=== PATIENT | female | born 1960 | race Caucasian/White ===

== ENCOUNTER 2020-09-07 12:57 | Inpatient (IN) | payer OTHER ==
[2020-09-07 13:28] VITALS: BMI 30.3
[2020-09-07 14:29] LABS: EOS % 5.6 % (0-4.5); HEMATOCRIT 39.6 % (32.4-45.2); LYMPH % 12.1 % (8-40); MCH 30.1 pg (25.7-33.7); MCHC 32.8 g/dl (32.0-36.0); MEAN PLT VOLUME 10.6 fl (7.5-11.1); MONO % 3.3 % (3.8-10.2); PLATELET COUNT 189 K/MM3 (134-434); RDW 14.2 % (11.6-15.6); WHITE BLOOD COUNT 12.8 K/mm3 (4.0-10.0)
[2020-09-07 14:34] LABS: INR 1.14 (0.83-1.09); PROTHROMBIN TIME (PATIENT) 13.7 SEC (9.7-13.0)
[2020-09-07 14:37] LABS: ACTIVATED PTT 32.2 SECONDS (25.2-36.5)
[2020-09-07 14:44] LABS: VENOUS BASE EXCESS -2.3 mmol/L (-2-2); VENOUS O2 SATURATION 80.3 % (70-80); VENOUS PCO2 52.2 mmHg (38-52); VENOUS PH 7.302 (7.310-7.410)
[2020-09-07 14:47] LABS: CHLORIDE 101 mmol/L (98-107); POTASSIUM 4.1 mmol/L (3.5-5.1); SODIUM 135 mmol/L (136-145)
[2020-09-07 14:50] LABS: CALCIUM 9.4 mg/dL (8.5-10.1)
[2020-09-07 14:51] LABS: ALBUMIN 3.7 g/dl (3.4-5.0); ANION GAP 6 MMOL/L (8-16); CO2 29 mmol/L (21-32); GLUCOSE,RANDOM 301 mg/dL (74-106)
[2020-09-07 14:54] LABS: BILIRUBIN,DIRECT 0.2 mg/dL (0.0-0.2); CREATININE 0.8 mg/dL (0.55-1.3); SGOT/AST 37 U/L (15-37); SGPT/ALT 51 U/L (13-61)
[2020-09-07 14:56] LABS: BILIRUBIN,TOTAL 0.8 mg/dL (0.2-1); TOT PROT 7.5 g/dl (6.4-8.2)
[2020-09-07 14:57] LABS: ALK PHOS 132 U/L (45-117); LDH 254 U/L (84-246)
[2020-09-07 15:01] LABS: EPI CELLS >36 /uL (0-25.1); HYALINE CASTS 7 /uL (0-3.1); URINE APPEARANCE CLOUDY; URINE BACTERIA 674 /uL (0-1359); URINE BILIRUBIN NEGATIVE (NEGATIVE); URINE COLOR YELLOW; URINE GLUCOSE (UA) 3+ (NEGATIVE); URINE KETONE TRACE (NEGATIVE); URINE LEUK ESTERASE NEGATIVE (NEGATIVE); URINE NITRITE NEGATIVE (NEGATIVE); URINE PROTEIN 2+ (NEGATIVE); URINE WBC 45 /uL (0-25.8)
[2020-09-07 16:43] LABS: URINE RBC 20 /uL (0-23.9)
[2020-09-07] MEDS ORDERED: ALBUTEROL SO4 2.5/IPRATROPIUM 0.5 INH SOL 3 ML VIAL.NEB. NEB ONE ×5 (16:45→18:24)
[2020-09-07] MEDS ORDERED: predniSONE 20 MG TABLET (UD) PO ONE (16:45)
[2020-09-07] MEDS ORDERED: predniSONE 20 MG TABLET (UD) ONE ×2 (17:27→17:30)
[2020-09-07] MEDS ORDERED: ALBUTEROL SO4 HFA INHALER IH PRN ×2 (20:11→20:43)
[2020-09-07] MEDS: FAMOTIDINE 20 MG TABLET PO SCH (21:19)
[2020-09-07] MEDS ORDERED: FAMOTIDINE 20 MG/50 ML IVPB 20 MG/50 ML MG IVPB ONE (21:19)
[2020-09-07] MEDS: MONTELUKAST NA 10 MG TABLET PO SCH (22:10)
[2020-09-07] MEDS: BUDESONIDE/FORMETEROL FUMARATE 80/4.5 mcg INHALER IH SCH (22:10)
[2020-09-07 22:26] LABS: ARTERIAL BLD GAS O2 SATURATION 97.7 mmHg (95-98); ARTERIAL BLOOD GAS BASE EXCESS -0.6 mmol/L (-2-2); ARTERIAL BLOOD GAS PO2 103.3 mmHg (80-100); ARTERIAL BLOOD GAS pH 7.385 (7.350-7.450)
[2020-09-07 22:28] LABS: ALLENS TEST POSITIVE
[2020-09-07] MEDS ORDERED: MONTELUKAST NA 10 MG TABLET ONE (22:39)
[2020-09-07] MEDS: INSULIN SLIDING SCALE (NOVOLOG) 1 VIAL SQ SCH (22:50)
[2020-09-07] MEDS ORDERED: INSULIN (LEVEMIR) 100 UNITS/ML UNITS SQ ONE (23:35)
[2020-09-07] MEDS: INSULIN (LEVEMIR) 100 UNITS/ML UNITS SQ SCH (23:46)
[2020-09-08] MEDS ORDERED: AZITHROMYCIN IVPB 500 MG in DEXTROSE 5%-WATER - 250 ML IVPB ONE ×2 (00:47→02:45)
[2020-09-08] MEDS ORDERED: AZITHROMYCIN IVPB 500 MG/250 ML BAG IVPB ONE (02:45)
[2020-09-08] MEDS: INSULIN SLIDING SCALE (NOVOLOG) 1 VIAL SQ SCH ×4 (06:47→21:59)
[2020-09-08] MEDS: BUDESONIDE/FORMETEROL FUMARATE 80/4.5 mcg INHALER IH SCH ×2 (09:57→22:20)
[2020-09-08] MEDS: FAMOTIDINE 20 MG TABLET PO SCH (09:57)
[2020-09-08] MEDS ORDERED: methylPREDNISolone NA SUCC 40 MG/1 ML VIAL IVPUSH SCH (10:00)
[2020-09-08] MEDS ORDERED: ENOXAPARIN NA (PORCINE) 40 MG/0.4 ML DISP.SYRIN SQ SCH (10:00)
[2020-09-08] MEDS ORDERED: AZITHROMYCIN IVPB 500 MG/250 ML BAG IVPB SCH ×2 (10:00)
[2020-09-08 10:03] LABS: POTASSIUM 3.9 mmol/L (3.5-5.1)
[2020-09-08 10:06] LABS: BASO % 0.2 % (0-2.0); EOS % 0.1 % (0-4.5); HEMATOCRIT 37.3 % (32.4-45.2); HEMOGLOBIN 12.5 GM/dL (10.7-15.3); LYMPH % 8.3 % (8-40); MCH 30.3 pg (25.7-33.7); MCHC 33.5 g/dl (32.0-36.0); MEAN CELL VOLUME 90.6 fl (80-96); MEAN PLT VOLUME 10.4 fl (7.5-11.1); MONO % 3.2 % (3.8-10.2); NEUT % 88.2 % (42.8-82.8); PLATELET COUNT 202 K/MM3 (134-434); RBC 4.12 M/mm3 (3.60-5.2); RDW 14.2 % (11.6-15.6); WHITE BLOOD COUNT 24.8 K/mm3 (4.0-10.0)
[2020-09-08 10:08] LABS: ALBUMIN 3.5 g/dl (3.4-5.0); BLOOD UREA NITROGEN 22.4 mg/dL (7-18); CALCIUM 9.2 mg/dL (8.5-10.1)
[2020-09-08 10:13] LABS: PHOSPHOROUS 3.3 mg/dL (2.5-4.9); TOT PROT 7.4 g/dl (6.4-8.2)
[2020-09-08 10:20] LABS: BILIRUBIN,TOTAL 0.5 mg/dL (0.2-1)
[2020-09-08] MEDS: INSULIN (LEVEMIR) 100 UNITS/ML UNITS SQ SCH ×2 (10:44→21:58)
[2020-09-08] MEDS ORDERED: INSULIN (NOVOLOG) ASPART 100 UNITS/ML 10ML VIAL ONE ×2 (10:50→21:19)
[2020-09-08 11:03] LABS: ANISOCYTOSIS 0; MACROCYTOSIS 0; PLATELET ESTIMATE NORMAL
[2020-09-08] MEDS ORDERED: ALBUTEROL SO4 HFA INHALER IH PRN (15:34)
[2020-09-08] MEDS: methylPREDNISolone NA SUCC 40 MG/1 ML VIAL IVPUSH SCH (17:18)
[2020-09-08] MEDS ORDERED: INSULIN (NOVOLOG) ASPART 100 UNITS/ML 10ML VIAL SQ ONE (17:20)
[2020-09-08 20:37] LABS: POTASSIUM 4.6 mmol/L (3.5-5.1)
[2020-09-08 20:42] LABS: CREATININE 1.1 mg/dL (0.55-1.3)
[2020-09-08] MEDS: APIXABAN 5 MG TABLET PO SCH (21:58)
[2020-09-08] MEDS: MONTELUKAST NA 10 MG TABLET PO SCH (21:58)
[2020-09-09] MEDS: methylPREDNISolone NA SUCC 40 MG/1 ML VIAL IVPUSH SCH ×3 (01:26→18:23)
[2020-09-09] MEDS ORDERED: PT OWN MED DRAWER 7, Y5N ONE ×2 (05:51→10:14)
[2020-09-09] MEDS: INSULIN (LEVEMIR) 100 UNITS/ML UNITS SQ SCH ×2 (06:47→22:32)
[2020-09-09] MEDS: INSULIN SLIDING SCALE (NOVOLOG) 1 VIAL SQ SCH ×4 (06:47→22:29)
[2020-09-09 08:13] LABS: BASO % 0.2 % (0-2.0); HEMATOCRIT 37.9 % (32.4-45.2); HEMOGLOBIN 12.6 GM/dL (10.7-15.3); LYMPH % 5.5 % (8-40); MCH 30.5 pg (25.7-33.7); MCHC 33.1 g/dl (32.0-36.0); MEAN CELL VOLUME 92.2 fl (80-96); MEAN PLT VOLUME 9.9 fl (7.5-11.1); MONO % 1.5 % (3.8-10.2); NEUT % 92.8 % (42.8-82.8); PLATELET COUNT 202 K/MM3 (134-434); RBC 4.12 M/mm3 (3.60-5.2); RDW 14.3 % (11.6-15.6)
[2020-09-09 09:09] LABS: CALCIUM 9.4 mg/dL (8.5-10.1)
[2020-09-09 09:10] LABS: ALBUMIN 3.6 g/dl (3.4-5.0); BLOOD UREA NITROGEN 26.4 mg/dL (7-18); MAGNESIUM 2.3 mg/dL (1.8-2.4)
[2020-09-09 09:13] LABS: CREATININE 0.9 mg/dL (0.55-1.3); PHOSPHOROUS 4.2 mg/dL (2.5-4.9)
[2020-09-09 09:14] LABS: BILIRUBIN,TOTAL 0.5 mg/dL (0.2-1)
[2020-09-09 09:15] LABS: TOT PROT 7.4 g/dl (6.4-8.2)
[2020-09-09] MEDS: APIXABAN 5 MG TABLET PO SCH ×2 (10:16→22:32)
[2020-09-09] MEDS: FAMOTIDINE 20 MG TABLET PO SCH (10:16)
[2020-09-09] MEDS: BUDESONIDE/FORMETEROL FUMARATE 80/4.5 mcg INHALER IH SCH ×2 (10:17→22:33)
[2020-09-09 11:23] LABS: ANISOCYTOSIS 0; MACROCYTOSIS 0; PLATELET ESTIMATE NORMAL
[2020-09-09] MEDS ORDERED: REMDESIVIR 200 MG in SODIUM CHLORIDE 210 ML IVPB ONE (13:00)
[2020-09-09] MEDS ORDERED: PARoxetine HCL 20 MG TABLET PO ONE (18:41)
[2020-09-09] MEDS: MONTELUKAST NA 10 MG TABLET PO SCH (22:32)
[2020-09-10] MEDS: methylPREDNISolone NA SUCC 40 MG/1 ML VIAL IVPUSH SCH ×3 (02:06→17:26)
[2020-09-10] MEDS ORDERED: INSULIN (NOVOLOG) ASPART 100 UNITS/ML 10ML VIAL SQ ONE ×2 (02:59→04:16)
[2020-09-10] MEDS ORDERED: diphenhydrAMINE HCL 25 MG CAPSULE (FP) PO ONE (04:14)
[2020-09-10] MEDS: INSULIN SLIDING SCALE (NOVOLOG) 1 VIAL SQ SCH ×4 (06:44→22:34)
[2020-09-10] MEDS: INSULIN (LEVEMIR) 100 UNITS/ML UNITS SQ SCH ×2 (06:45→22:32)
[2020-09-10 08:25] LABS: HEMATOCRIT 34.9 % (32.4-45.2); HEMOGLOBIN 11.6 GM/dL (10.7-15.3); LYMPH % 5.9 % (8-40); MCH 30.3 pg (25.7-33.7); MCHC 33.1 g/dl (32.0-36.0); MEAN CELL VOLUME 91.6 fl (80-96); MEAN PLT VOLUME 10.5 fl (7.5-11.1); MONO % 2.9 % (3.8-10.2); NEUT % 91.2 % (42.8-82.8); PLATELET COUNT 171 K/MM3 (134-434); POTASSIUM 3.9 mmol/L (3.5-5.1); RBC 3.81 M/mm3 (3.60-5.2); RDW 14.2 % (11.6-15.6); WHITE BLOOD COUNT 20.5 K/mm3 (4.0-10.0)
[2020-09-10 08:37] LABS: ALBUMIN 3.4 g/dl (3.4-5.0); CALCIUM 9.1 mg/dL (8.5-10.1)
[2020-09-10 08:38] LABS: BLOOD UREA NITROGEN 25.2 mg/dL (7-18); MAGNESIUM 2.5 mg/dL (1.8-2.4)
[2020-09-10 08:40] LABS: CREATININE 0.9 mg/dL (0.55-1.3)
[2020-09-10 08:41] LABS: BILIRUBIN,TOTAL 0.4 mg/dL (0.2-1); PHOSPHOROUS 3.4 mg/dL (2.5-4.9); TOT PROT 6.9 g/dl (6.4-8.2)
[2020-09-10 10:46] LABS: ANISOCYTOSIS 0; MACROCYTOSIS 0; PLATELET ESTIMATE NORMAL
[2020-09-10] MEDS: BUDESONIDE/FORMETEROL FUMARATE 80/4.5 mcg INHALER IH SCH ×2 (10:56→22:38)
[2020-09-10] MEDS: FAMOTIDINE 20 MG TABLET PO SCH (10:56)
[2020-09-10] MEDS: APIXABAN 5 MG TABLET PO SCH ×2 (10:56→22:32)
[2020-09-10] MEDS: REMDESIVIR 100 MG in SODIUM CHLORIDE 230 ML IVPB SCH (12:00)
[2020-09-10] MEDS ORDERED: PARoxetine HCL 20 MG TABLET PO ONE (15:00)
[2020-09-10] MEDS: MONTELUKAST NA 10 MG TABLET PO SCH (22:32)
[2020-09-11] MEDS: INSULIN SLIDING SCALE (NOVOLOG) 1 VIAL SQ SCH ×4 (06:05→23:26)
[2020-09-11] MEDS: INSULIN (LEVEMIR) 100 UNITS/ML UNITS SQ SCH ×2 (06:05→23:26)
[2020-09-11] MEDS ORDERED: INSULIN (LEVEMIR) 100 UNITS/ML UNITS SQ SCH (08:58)
[2020-09-11] MEDS: BUDESONIDE/FORMETEROL FUMARATE 80/4.5 mcg INHALER IH SCH ×2 (10:10→23:30)
[2020-09-11] MEDS: DEXAMETHASONE SOD PHOSPHATE 4 MG/1 ML VIAL IVPUSH SCH (10:10)
[2020-09-11] MEDS: APIXABAN 5 MG TABLET PO SCH ×2 (10:10→23:25)
[2020-09-11] MEDS: FAMOTIDINE 20 MG TABLET PO SCH (10:10)
[2020-09-11] MEDS: PARoxetine HCL 20 MG TABLET PO SCH (10:10)
[2020-09-11] MEDS: REMDESIVIR 100 MG in SODIUM CHLORIDE 230 ML IVPB SCH (15:05)
[2020-09-11] MEDS: MONTELUKAST NA 10 MG TABLET PO SCH (23:25)
[2020-09-12 02:02] VITALS: PULSE 60
[2020-09-12] MEDS ORDERED: ACETAMINOPHEN 325 MG TABLET (FP) PO ONE (02:07)
[2020-09-12] MEDS: INSULIN SLIDING SCALE (NOVOLOG) 1 VIAL SQ SCH ×2 (06:34→12:33)
[2020-09-12] MEDS: INSULIN (LEVEMIR) 100 UNITS/ML UNITS SQ SCH (06:34)
[2020-09-12] MEDS ORDERED: INSULIN (NOVOLOG) ASPART 100 UNITS/ML 10ML VIAL ONE ×2 (06:39→12:06)
[2020-09-12 07:03] VITALS: BP 148/92; TEMP 97.3
[2020-09-12 08:47] LABS: BASO % 0.5 % (0-2.0); EOS % 0.6 % (0-4.5); HEMATOCRIT 39.2 % (32.4-45.2); HEMOGLOBIN 13.3 GM/dL (10.7-15.3); LYMPH % 16.5 % (8-40); MCH 30.9 pg (25.7-33.7); MCHC 34.1 g/dl (32.0-36.0); MEAN CELL VOLUME 90.6 fl (80-96); MEAN PLT VOLUME 10.2 fl (7.5-11.1); MONO % 7.3 % (3.8-10.2); NEUT % 75.1 % (42.8-82.8); PLATELET COUNT 195 K/MM3 (134-434); RBC 4.33 M/mm3 (3.60-5.2); RDW 13.9 % (11.6-15.6); WHITE BLOOD COUNT 18.9 K/mm3 (4.0-10.0)
[2020-09-12 09:04] LABS: POTASSIUM 4.1 mmol/L (3.5-5.1)
[2020-09-12 09:05] LABS: ALBUMIN 3.6 g/dl (3.4-5.0); CALCIUM 9.2 mg/dL (8.5-10.1)
[2020-09-12 09:09] LABS: CREATININE 0.8 mg/dL (0.55-1.3); PHOSPHOROUS 4.2 mg/dL (2.5-4.9)
[2020-09-12 09:10] LABS: MAGNESIUM 2.2 mg/dL (1.8-2.4)
[2020-09-12] MEDS: BUDESONIDE/FORMETEROL FUMARATE 80/4.5 mcg INHALER IH SCH (09:37)
[2020-09-12] MEDS: PARoxetine HCL 20 MG TABLET PO SCH (09:37)
[2020-09-12] MEDS: DEXAMETHASONE SOD PHOSPHATE 4 MG/1 ML VIAL IVPUSH SCH (09:37)
[2020-09-12] MEDS: APIXABAN 5 MG TABLET PO SCH (09:37)
[2020-09-12] MEDS: FAMOTIDINE 20 MG TABLET PO SCH (09:37)
[2020-09-12 10:19] LABS: BILIRUBIN,TOTAL 0.6 mg/dL (0.2-1); TOT PROT 7.2 g/dl (6.4-8.2)
[2020-09-12 10:20] LABS: ERYTHROCYTE SEDIMENTATION RATE 16 mm/hr (0-30)
[2020-09-12 10:23] LABS: ANISOCYTOSIS 0; MACROCYTOSIS 0; PLATELET ESTIMATE NORMAL
[2020-09-12] MEDS: REMDESIVIR 100 MG in SODIUM CHLORIDE 230 ML IVPB SCH (12:33)
== END 2020-09-12 16:24 | disposition home or self-care (01) | DRG 177 ==
LOC: JER 12:57 → JERBED 19:10 → J6S 09-08 02:24
PROVIDERS: ADMIT Internal Medicine; ATTEND Internal Medicine
PROC: 8E0ZXY6 Isolation (ICD-10-PCS; 2020-09-07)
PROC: XW033E5 Introduction of Remdesivir Anti-infective into Peripheral Vein, Percutaneous Approach, New Technology Group 5 (ICD-10-PCS; 2020-09-09)
PROC: XW13325 Transfusion of Convalescent Plasma (Nonautologous) into Peripheral Vein, Percutaneous Approach, New Technology Group 5 (ICD-10-PCS; principal; 2020-09-10)
DX: U07.1 COVID-19 (principal); J12.89 Other viral pneumonia; J96.01 Acute respiratory failure with hypoxia; J96.02 Acute respiratory failure with hypercapnia; J45.901 Unspecified asthma with (acute) exacerbation; R43.8 Other disturbances of smell and taste; J45.909 Unspecified asthma, uncomplicated; E11.65 Type 2 diabetes mellitus with hyperglycemia
CPT/HCPCS: 36415; 36430; 36600; 71045-TC-FY; 71275-TC; 80048; 80053; 81003; 82248; 82550; 82553; 82728; 82803; 82962; 83605; 83615; 83735; 84100; 84484; 85025; 85379; 85610; 85651; 85730; 86140; 86850; 86900; 86901; 87040; 87086; 87804; 93005; 93010; 94761; 97116-GP; 97162-GP; 99291; C9399; C9803; P9017; Q9967; U0003

== ENCOUNTER 2022-08-25 18:58 | Emergency (ER) | payer OTHER ==
[2022-08-25 19:04] VITALS: RESP 18; BMI 28.3
[2022-08-25] MEDS ORDERED: ALBUTEROL SO4 2.5/IPRATROPIUM 0.5 INH SOL 3 ML VIAL.NEB. NEB ONE (19:13)
[2022-08-25] MEDS ORDERED: ALBUTEROL SO4 0.083% IH SOL 2.5 MG/3 ML VIAL.NEB. NEB ONE (19:20)
[2022-08-25] MEDS ORDERED: IBUPROFEN 800 MG/8 ML IJ IVPB ONE ×2 (20:30→20:37)
[2022-08-25] MEDS ORDERED: SODIUM CHLORIDE 0.9% 500 ML INFUS.BAG IV ONE (20:30)
[2022-08-25] MEDS ORDERED: ACETAMINOPHEN 1000 MG/100 ML BAG IVPB ONE (20:30)
[2022-08-25] MEDS ORDERED: ACETAMINOPHEN INJECTION 100 ML IVPB ONE (20:37)
[2022-08-25 21:53] LABS: HEMATOCRIT 34.6 % (32.4-45.2); HEMOGLOBIN 11.7 GM/dL (10.7-15.3); MCH 31.4 pg (25.7-33.7); MCHC 33.8 g/dl (32.0-36.0); MEAN CELL VOLUME 92.9 fl (80-96); MEAN PLT VOLUME 9.8 fl (7.5-11.1); PLATELET COUNT 171 10^3/uL (134-434); RBC 3.73 M/mm3 (3.60-5.2); RDW 13.8 % (11.6-15.6); WHITE BLOOD COUNT 9.8 K/mm3 (4.0-10.0)
[2022-08-25 22:11] LABS: ALBUMIN 3.6 g/dl (3.4-5.0); BLOOD UREA NITROGEN 17.7 mg/dL (7-18)
[2022-08-25 22:16] LABS: BILIRUBIN,TOTAL 0.3 mg/dL (0.2-1); TOT PROT 6.8 g/dl (6.4-8.2)
[2022-08-25] MEDS ORDERED: MAGNESIUM SULF 50% (8.12 MEQ/2 ML-1 GM VIAL) IVPB ONE (22:19)
[2022-08-25] MEDS ORDERED: POTASSIUM CHLORIDE TABS 20 MEQ TABLET.ER (FP) PO ONE (22:19)
[2022-08-25 22:28] LABS: CALCIUM 8.6 mg/dL (8.5-10.1)
[2022-08-26] MEDS ORDERED: POTASSIUM CHLORIDE TABS 20 MEQ TABLET.ER (FP) PO ONE (00:31)
[2022-08-26] MEDS ORDERED: MAGNESIUM SULFATE IN WATER 2 GM/50 ML IVPB IVPB ONE (00:31)
[2022-08-26 01:27] VITALS: BP 107/62; PULSE 89; TEMP 98.8
== END 2022-08-26 01:27 | disposition home or self-care (01) ==
LOC: JER 18:58
PROC: 3E033GC Introduction of Other Therapeutic Substance into Peripheral Vein, Percutaneous Approach (ICD-10-PCS; principal; 2022-08-25)
PROC: 3E0F7GC Introduction of Other Therapeutic Substance into Respiratory Tract, Via Natural or Artificial Opening (ICD-10-PCS; 2022-08-25)
DX: J09.X2 Influenza due to identified novel influenza A virus with other respiratory manifestations (principal); K76.0 Fatty (change of) liver, not elsewhere classified
CPT/HCPCS: 0241U-QW; 36415; 71046-TC-FY; 71275-TC; 80053; 84484; 85027; 85379; 93005; 93010; 99285-25; Q9967

== ENCOUNTER 2022-12-18 11:44 | Inpatient (IN) | payer OTHER ==
[2022-12-18] MEDS ORDERED: ACETAMINOPHEN 1000 MG/100 ML BAG IVPB ONE (12:30)
[2022-12-18 13:10] LABS: HEMATOCRIT 36.6 % (32.4-45.2); HEMOGLOBIN 12.6 GM/dL (10.7-15.3); MCHC 34.3 g/dl (32.0-36.0); MEAN CELL VOLUME 90.5 fl (80-96); MEAN PLT VOLUME 8.3 fl (7.5-11.1); PLATELET COUNT 239 10^3/uL (134-434); RBC 4.05 M/mm3 (3.60-5.2); RDW 13.8 % (11.6-15.6); WHITE BLOOD COUNT 21.9 K/mm3 (4.0-10.0)
[2022-12-18 13:19] LABS: VENOUS BASE EXCESS 2.2 mmol/L (-2-2); VENOUS O2 SATURATION 90.7 % (70-80); VENOUS PCO2 41.6 mmHg (38-52); VENOUS PH 7.427 (7.310-7.410)
[2022-12-18 13:33] LABS: CALCIUM 9.1 mg/dL (8.5-10.1)
[2022-12-18 13:34] LABS: ALBUMIN 3.3 g/dl (3.4-5.0); BLOOD UREA NITROGEN 16.5 mg/dL (7-18)
[2022-12-18 13:35] LABS: ANISOCYTOSIS 0; HELMET CELLS 0; HOWELL-JOLLY BODIES 0; MACROCYTOSIS 0; OVALOCYTE 0; ROULEAU 0; SICKELED CELLS 0; TARGET CELLS 0; TEAR DROP CELLS 0; TOXIC GRANULATION 0
[2022-12-18 13:37] LABS: CREATININE 0.8 mg/dL (0.55-1.3)
[2022-12-18 13:39] LABS: TOT PROT 7.3 g/dl (6.4-8.2)
[2022-12-18] MEDS ORDERED: CEFTRIAXONE 1,000 MG in DEXTROSE 5%-WATER - 50 ML IVPB ONE (13:53)
[2022-12-18] MEDS ORDERED: AZITHROMYCIN IVPB 500 MG in DEXTROSE 5%-WATER - 250 ML IVPB ONE (13:54)
[2022-12-18] MEDS ORDERED: AZITHROMYCIN IVPB 500 MG/250 ML BAG IVPB ONE (14:34)
[2022-12-18] MEDS ORDERED: CEFTRIAXONE 1 GM/50 ML BAG ONE (14:34)
[2022-12-18] MEDS ORDERED: ALBUTEROL SO4 0.042% IH SOL 1.25 MG/3 ML VIAL.NEB NEB SCH ×2 (16:15→17:27)
[2022-12-18] MEDS: INSULIN SLIDING SCALE (NOVOLOG) 1 VIAL SQ SCH ×2 (17:16→22:33)
[2022-12-18] MEDS ORDERED: ALBUTEROL SO4 0.083% IH SOL 2.5 MG/3 ML VIAL.NEB. NEB ONE (17:18)
[2022-12-18] MEDS: FLUTICASONE/SALMETEROL 100 MCG/50 MCG DISKUS IH SCH ×2 (19:03→22:09)
[2022-12-18 20:52] LABS: EPI CELLS 5 /uL (0-25.1); HYALINE CASTS 2 /uL (0-3.1); PH,URINE 5.5 (5.0-8.0); URINE APPEARANCE CLEAR; URINE BACTERIA 5 /uL (0-1359); URINE BILIRUBIN NEGATIVE (NEGATIVE); URINE COLOR YELLOW; URINE GLUCOSE (UA) 1+ (NEGATIVE); URINE KETONE NEGATIVE (NEGATIVE); URINE LEUK ESTERASE NEGATIVE (NEGATIVE); URINE NITRITE NEGATIVE (NEGATIVE); URINE PROTEIN 1+ (NEGATIVE); URINE RBC 5 /uL (0-23.9); URINE WBC 7 /uL (0-25.8)
[2022-12-18] MEDS: INSULIN (LEVEMIR) 100 UNITS/ML UNITS SQ SCH (22:33)
[2022-12-19] MEDS ORDERED: ALBUTEROL SO4 0.083% IH SOL 2.5 MG/3 ML VIAL.NEB. NEB ONE ×2 (06:56→22:23)
[2022-12-19] MEDS: ALBUTEROL SO4 0.042% IH SOL 1.25 MG/3 ML VIAL.NEB NEB PRN ×4 (07:01→23:15)
[2022-12-19 07:17] LABS: HEMATOCRIT 35.8 % (32.4-45.2); MCH 30.5 pg (25.7-33.7); MCHC 33.6 g/dl (32.0-36.0); MEAN CELL VOLUME 90.9 fl (80-96); MEAN PLT VOLUME 8.6 fl (7.5-11.1); PLATELET COUNT 246 10^3/uL (134-434); RBC 3.94 M/mm3 (3.60-5.2); RDW 13.4 % (11.6-15.6); WHITE BLOOD COUNT 18.8 K/mm3 (4.0-10.0)
[2022-12-19] MEDS: INSULIN SLIDING SCALE (NOVOLOG) 1 VIAL SQ SCH ×3 (07:30→17:46)
[2022-12-19 07:39] LABS: ALBUMIN 2.9 g/dl (3.4-5.0); BLOOD UREA NITROGEN 27.9 mg/dL (7-18); CALCIUM 9.2 mg/dL (8.5-10.1); MAGNESIUM 2.4 mg/dL (1.8-2.4)
[2022-12-19 07:42] LABS: CREATININE 0.7 mg/dL (0.55-1.3); PHOSPHOROUS 3.8 mg/dL (2.5-4.9)
[2022-12-19 07:44] LABS: TOT PROT 6.8 g/dl (6.4-8.2)
[2022-12-19 07:49] LABS: BILIRUBIN,TOTAL 0.4 mg/dL (0.2-1)
[2022-12-19] MEDS ORDERED: AZITHROMYCIN IVPB 500 MG/250 ML BAG IVPB ONE (09:25)
[2022-12-19] MEDS ORDERED: ENOXAPARIN NA (PORCINE) 40 MG/0.4 ML DISP.SYRIN SQ ONE (09:25)
[2022-12-19] MEDS ORDERED: CEFTRIAXONE 1 GM/50 ML BAG ONE (09:25)
[2022-12-19] MEDS: FLUTICASONE/SALMETEROL 100 MCG/50 MCG DISKUS IH SCH (09:40)
[2022-12-19] MEDS: CEFTRIAXONE 1 GM in DEXTROSE 5%-WATER - 50 ML IVPB SCH (09:41)
[2022-12-19] MEDS: INSULIN (LEVEMIR) 100 UNITS/ML UNITS SQ SCH (09:41)
[2022-12-19] MEDS: ENOXAPARIN NA (PORCINE) 40 MG/0.4 ML DISP.SYRIN SQ SCH (09:41)
[2022-12-19] MEDS: AZITHROMYCIN IVPB 250 MG in DEXTROSE 5%-WATER - 250 ML IVPB SCH (09:41)
[2022-12-19 09:45] LABS: ANISOCYTOSIS 0; HELMET CELLS 0; HOWELL-JOLLY BODIES 0; MACROCYTOSIS 0; OVALOCYTE 0; ROULEAU 0; SICKELED CELLS 0; TARGET CELLS 0; TEAR DROP CELLS 0; TOXIC GRANULATION 0
[2022-12-19] MEDS ORDERED: PATIENT'S OWN MEDICATION (NON-FORMULARY) (Fluticasone Propion/Salmeterol [Wixela 500-50 In IH SCH (15:30)
[2022-12-20] MEDS: FLUTICASONE/SALMETEROL 100 MCG/50 MCG DISKUS IH SCH ×3 (05:12→22:45)
[2022-12-20] MEDS ORDERED: ALBUTEROL SO4 0.083% IH SOL 2.5 MG/3 ML VIAL.NEB. NEB ONE (05:17)
[2022-12-20] MEDS: INSULIN SLIDING SCALE (NOVOLOG) 1 VIAL SQ SCH ×4 (05:21→16:43)
[2022-12-20] MEDS: INSULIN (LEVEMIR) 100 UNITS/ML UNITS SQ SCH ×3 (05:21→23:19)
[2022-12-20 07:46] VITALS: BMI 27.8
[2022-12-20 09:24] LABS: HEMOGLOBIN 12.2 GM/dL (10.7-15.3); MCH 30.5 pg (25.7-33.7); MCHC 33.9 g/dl (32.0-36.0); MEAN CELL VOLUME 90.2 fl (80-96); MEAN PLT VOLUME 8.4 fl (7.5-11.1); PLATELET COUNT 313 10^3/uL (134-434); RBC 3.99 M/mm3 (3.60-5.2); RDW 13.7 % (11.6-15.6); WHITE BLOOD COUNT 16.9 K/mm3 (4.0-10.0)
[2022-12-20 09:49] LABS: ALBUMIN 3.1 g/dl (3.4-5.0); BLOOD UREA NITROGEN 22.1 mg/dL (7-18); CALCIUM 9.3 mg/dL (8.5-10.1)
[2022-12-20 09:50] LABS: MAGNESIUM 2.3 mg/dL (1.8-2.4)
[2022-12-20 09:52] LABS: CREATININE 0.8 mg/dL (0.55-1.3); PHOSPHOROUS 4.2 mg/dL (2.5-4.9)
[2022-12-20 09:54] LABS: BILIRUBIN,TOTAL 0.6 mg/dL (0.2-1); TOT PROT 6.9 g/dl (6.4-8.2)
[2022-12-20] MEDS: PARoxetine HCL 20 MG TABLET PO SCH (09:59)
[2022-12-20] MEDS: ENOXAPARIN NA (PORCINE) 40 MG/0.4 ML DISP.SYRIN SQ SCH (09:59)
[2022-12-20] MEDS: CEFTRIAXONE 1 GM in DEXTROSE 5%-WATER - 50 ML IVPB SCH (09:59)
[2022-12-20] MEDS: AZITHROMYCIN IVPB 250 MG in DEXTROSE 5%-WATER - 250 ML IVPB SCH (11:01)
[2022-12-20] MEDS: methylPREDNISolone NA SUCC 40 MG/1 ML VIAL IVPUSH SCH ×2 (13:16→18:11)
[2022-12-20] MEDS: PANTOPRAZOLE 40 MG TABLET PO SCH (13:16)
[2022-12-20] MEDS ORDERED: ALBUTEROL SO4 2.5/IPRATROPIUM 0.5 INH SOL 3 ML VIAL.NEB. NEB PRN (15:45)
[2022-12-21] MEDS: INSULIN SLIDING SCALE (NOVOLOG) 1 VIAL SQ SCH ×5 (00:14→21:45)
[2022-12-21] MEDS: methylPREDNISolone NA SUCC 40 MG/1 ML VIAL IVPUSH SCH ×3 (02:44→17:48)
[2022-12-21 09:17] LABS: HEMATOCRIT 34.9 % (32.4-45.2); HEMOGLOBIN 12.3 GM/dL (10.7-15.3); MCH 31.6 pg (25.7-33.7); MCHC 35.1 g/dl (32.0-36.0); MEAN PLT VOLUME 8.6 fl (7.5-11.1); PLATELET COUNT 326 10^3/uL (134-434); RBC 3.88 M/mm3 (3.60-5.2); RDW 13.5 % (11.6-15.6); WHITE BLOOD COUNT 22.6 K/mm3 (4.0-10.0)
[2022-12-21 09:37] LABS: CALCIUM 9.7 mg/dL (8.5-10.1)
[2022-12-21 09:38] LABS: ALBUMIN 3.2 g/dl (3.4-5.0)
[2022-12-21 09:41] LABS: CREATININE 0.8 mg/dL (0.55-1.3)
[2022-12-21 09:43] LABS: BILIRUBIN,TOTAL 0.6 mg/dL (0.2-1); TOT PROT 7.6 g/dl (6.4-8.2)
[2022-12-21 10:04] LABS: ANISOCYTOSIS 0; HELMET CELLS 0; HOWELL-JOLLY BODIES 0; MACROCYTOSIS 0; OVALOCYTE 0; ROULEAU 0; SICKELED CELLS 0; TARGET CELLS 0; TEAR DROP CELLS 0; TOXIC GRANULATION 0
[2022-12-21] MEDS: INSULIN (LEVEMIR) 100 UNITS/ML UNITS SQ SCH (11:54)
[2022-12-21] MEDS: FLUTICASONE/SALMETEROL 100 MCG/50 MCG DISKUS IH SCH ×2 (11:54→21:45)
[2022-12-21] MEDS: ENOXAPARIN NA (PORCINE) 40 MG/0.4 ML DISP.SYRIN SQ SCH (11:55)
[2022-12-21] MEDS: PARoxetine HCL 20 MG TABLET PO SCH (11:56)
[2022-12-21] MEDS: PANTOPRAZOLE 40 MG TABLET PO SCH (11:56)
[2022-12-21] MEDS: CEFTRIAXONE 1 GM in DEXTROSE 5%-WATER - 50 ML IVPB SCH (11:56)
[2022-12-21] MEDS: AZITHROMYCIN IVPB 250 MG in DEXTROSE 5%-WATER - 250 ML IVPB SCH (12:01)
[2022-12-21] MEDS: ALBUTEROL SO4 2.5/IPRATROPIUM 0.5 INH SOL 3 ML VIAL.NEB. NEB SCH (20:30)
[2022-12-22] MEDS: INSULIN (LEVEMIR) 100 UNITS/ML UNITS SQ SCH ×3 (00:19→21:51)
[2022-12-22] MEDS: ALBUTEROL SO4 2.5/IPRATROPIUM 0.5 INH SOL 3 ML VIAL.NEB. NEB SCH ×6 (00:23→19:57)
[2022-12-22] MEDS: methylPREDNISolone NA SUCC 40 MG/1 ML VIAL IVPUSH SCH ×3 (01:43→17:28)
[2022-12-22] MEDS: INSULIN SLIDING SCALE (NOVOLOG) 1 VIAL SQ SCH ×4 (06:56→22:12)
[2022-12-22 09:45] LABS: HEMATOCRIT 35.9 % (32.4-45.2); HEMOGLOBIN 12.2 GM/dL (10.7-15.3); MCH 30.6 pg (25.7-33.7); MCHC 33.9 g/dl (32.0-36.0); MEAN CELL VOLUME 90.3 fl (80-96); MEAN PLT VOLUME 8.2 fl (7.5-11.1); PLATELET COUNT 390 10^3/uL (134-434); RBC 3.97 M/mm3 (3.60-5.2); RDW 13.7 % (11.6-15.6)
[2022-12-22] MEDS: FLUTICASONE/SALMETEROL 100 MCG/50 MCG DISKUS IH SCH (09:52)
[2022-12-22] MEDS: PARoxetine HCL 20 MG TABLET PO SCH (09:52)
[2022-12-22] MEDS: ENOXAPARIN NA (PORCINE) 40 MG/0.4 ML DISP.SYRIN SQ SCH (09:52)
[2022-12-22] MEDS: PANTOPRAZOLE 40 MG TABLET PO SCH (09:52)
[2022-12-22 10:13] LABS: WHITE BLOOD COUNT 36.4 K/mm3 (4.0-10.0)
[2022-12-22 10:55] LABS: ANISOCYTOSIS 0; HELMET CELLS 0; HOWELL-JOLLY BODIES 0; MACROCYTOSIS 0; OVALOCYTE 0; ROULEAU 0; SICKELED CELLS 0; TARGET CELLS 0; TEAR DROP CELLS 0; TOXIC GRANULATION 0
[2022-12-22] MEDS: CEFTRIAXONE 1 GM in DEXTROSE 5%-WATER - 50 ML IVPB SCH (11:15)
[2022-12-23] MEDS: methylPREDNISolone NA SUCC 40 MG/1 ML VIAL IVPUSH SCH ×3 (01:56→18:04)
[2022-12-23] MEDS: INSULIN SLIDING SCALE (NOVOLOG) 1 VIAL SQ SCH ×4 (06:19→22:56)
[2022-12-23] MEDS: ALBUTEROL SO4 2.5/IPRATROPIUM 0.5 INH SOL 3 ML VIAL.NEB. NEB SCH ×4 (08:40→21:12)
[2022-12-23] MEDS: PANTOPRAZOLE 40 MG TABLET PO SCH (09:00)
[2022-12-23] MEDS: ENOXAPARIN NA (PORCINE) 40 MG/0.4 ML DISP.SYRIN SQ SCH (09:00)
[2022-12-23] MEDS: PARoxetine HCL 20 MG TABLET PO SCH (09:00)
[2022-12-23] MEDS: CEFTRIAXONE 1 GM in DEXTROSE 5%-WATER - 50 ML IVPB SCH (09:00)
[2022-12-23] MEDS: INSULIN (LEVEMIR) 100 UNITS/ML UNITS SQ SCH ×2 (09:03→22:50)
[2022-12-23] MEDS: FLUTICASONE/UMECLIDIN/VILANTER(200-62.5-25 TRELEGY ELLIPTA) INAHLER IH SCH (09:07)
[2022-12-23 12:46] VITALS: RESP 18
[2022-12-23 16:09] LABS: BASO % 0.3 % (0-2.0); HEMATOCRIT 33.2 % (32.4-45.2); HEMOGLOBIN 11.3 GM/dL (10.7-15.3); LYMPH % 4.4 % (8-40); MCH 30.9 pg (25.7-33.7); MCHC 34.1 g/dl (32.0-36.0); MEAN CELL VOLUME 90.7 fl (80-96); MEAN PLT VOLUME 8.3 fl (7.5-11.1); MONO % 3.9 % (3.8-10.2); NEUT % 91.4 % (42.8-82.8); PLATELET COUNT 296 10^3/uL (134-434); RBC 3.66 M/mm3 (3.60-5.2); RDW 13.4 % (11.6-15.6); WHITE BLOOD COUNT 28.8 K/mm3 (4.0-10.0)
[2022-12-23 16:44] LABS: ANISOCYTOSIS 1+; MACROCYTOSIS 1+
[2022-12-24] MEDS: methylPREDNISolone NA SUCC 40 MG/1 ML VIAL IVPUSH SCH ×2 (01:10→09:23)
[2022-12-24] MEDS: INSULIN SLIDING SCALE (NOVOLOG) 1 VIAL SQ SCH (06:30)
[2022-12-24 06:59] VITALS: TEMP 98.1
[2022-12-24] MEDS: ALBUTEROL SO4 2.5/IPRATROPIUM 0.5 INH SOL 3 ML VIAL.NEB. NEB SCH (07:42)
[2022-12-24 08:53] LABS: HEMATOCRIT 36.9 % (32.4-45.2); HEMOGLOBIN 12.7 GM/dL (10.7-15.3); MCHC 34.3 g/dl (32.0-36.0); MEAN CELL VOLUME 90.3 fl (80-96); MEAN PLT VOLUME 8.1 fl (7.5-11.1); PLATELET COUNT 325 10^3/uL (134-434); RBC 4.09 M/mm3 (3.60-5.2); RDW 13.8 % (11.6-15.6); WHITE BLOOD COUNT 29.1 K/mm3 (4.0-10.0)
[2022-12-24 09:03] LABS: BLOOD UREA NITROGEN 31.4 mg/dL (7-18)
[2022-12-24 09:05] LABS: CALCIUM 9.7 mg/dL (8.5-10.1)
[2022-12-24 09:06] LABS: CREATININE 0.9 mg/dL (0.55-1.3)
[2022-12-24] MEDS: PARoxetine HCL 20 MG TABLET PO SCH (09:22)
[2022-12-24] MEDS: PANTOPRAZOLE 40 MG TABLET PO SCH (09:22)
[2022-12-24] MEDS: CEFTRIAXONE 1 GM in DEXTROSE 5%-WATER - 50 ML IVPB SCH (09:22)
[2022-12-24] MEDS: ENOXAPARIN NA (PORCINE) 40 MG/0.4 ML DISP.SYRIN SQ SCH (09:22)
[2022-12-24] MEDS: INSULIN (LEVEMIR) 100 UNITS/ML UNITS SQ SCH (09:24)
[2022-12-24] MEDS: FLUTICASONE/UMECLIDIN/VILANTER(200-62.5-25 TRELEGY ELLIPTA) INAHLER IH SCH (09:25)
[2022-12-24 10:21] VITALS: BP 150/83; PULSE 82
[2022-12-24 11:08] LABS: ANISOCYTOSIS 0; MACROCYTOSIS 0
== END 2022-12-24 11:28 | disposition home or self-care (01) | DRG 202 ==
LOC: JER 11:44 → JERBED 14:38 → INTOOBSV 14:38 → J5S 12-20 05:36 → OBSVTOIN 12-21 17:40
PROVIDERS: ADMIT Internal Medicine; ATTEND Internal Medicine
DX: J45.901 Unspecified asthma with (acute) exacerbation (principal); J18.9 Pneumonia, unspecified organism; D72.829 Elevated white blood cell count, unspecified; E11.9 Type 2 diabetes mellitus without complications; E78.5 Hyperlipidemia, unspecified; K21.9 Gastro-esophageal reflux disease without esophagitis; F32.A Depression, unspecified
CPT/HCPCS: 0241U-QW; 36415; 71046-TC-FY; 71250-TC; 80048; 80053; 81003; 82803; 82962; 83735; 84100; 84484; 85025; 85027; 87040; 87070; 87086; 87205; 87899; 93005; 93010; 94640; 99285-25; G0378